=== PATIENT | male | born 1940 | race Caucasian/White ===

== ENCOUNTER 2017-01-23 16:39 | Observation (INO) | payer MEDICARE ==
[~2017-01-23] VITALS: Ht 177.8 cm; Wt 84.0 kg
[2017-01-23] VITALS (8 sets, daily range): BP systolic 142–190; BP diastolic 74–106; PULSE 78–103; RESP 16–21; TEMP 97.9–98.8; O2SAT 97–99
[2017-01-23] MEDS ORDERED: DIGO0.12 PO (17:00)
[2017-01-23] MEDS ORDERED: ASPI81CH CHEW (17:00)
[2017-01-23] MEDS ORDERED: SODIUM CHLORIDE 0.9% FLUSH 5 ML FLUSH IVF PRN (17:15)
[2017-01-23] MEDS ORDERED: DIAZ2 PO (17:22)
[2017-01-23 17:51] LABS: BASOPHIL # 0.2 TH/MM3 (0-0.2); BASOPHIL % 0.9 % (0.0-2.0); EOSINOPHIL # 19.8 TH/MM3 (0-0.4); EOSINOPHIL % 68.3 % (0.0-4.0); HEMATOCRIT 44.6 % (39.0-51.0); HEMO FLAGS DIFF FINAL; LYMPH % 9.1 % (9.0-44.0); LYMPHOCYTE # 2.6 TH/MM3 (1.0-4.8); MEAN CORPUSCULAR HEMOGLOBIN 28.5 PG (27.0-34.0); MEAN CORPUSCULAR HGB CONC 33.6 % (32.0-36.0); MONO % 4.2 % (0.0-8.0); NEUT % 17.5 % (16.0-70.0); PLATELET COUNT 155 TH/MM3 (150-450); RED BLOOD COUNT 5.25 MIL/MM3 (4.50-5.90); RED CELL DISTRIBUTION WIDTH 14.9 % (11.6-17.2); WHITE BLOOD COUNT 28.9 TH/MM3 (4.0-11.0)
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
[2017-01-23 18:00] LABS: APTT (PATIENT) 29.8 SEC (24.3-30.1); INTERNATIONAL NORMALIZED RATIO 1.1 RATIO; PROTHROMBIN TIME - PATIENT 12.7 SEC (9.8-11.6)
--- NOTE | 2017-01-23 18:22 | RADRPT ---
EXAM DATE/TIME: 01/23/2017 18:04 [facility] COMPARISON: No previous studies available for comparison. INDICATIONS : Chest pain MEDICAL HISTORY : None. SURGICAL HISTORY : None. ENCOUNTER: Initial ACUITY: 1 day PAIN SCORE: 5/10 LOCATION: Bilateral chest FINDINGS: Patient is rotated to the left. There is cardiomegaly. The lungs are clear. Osseous structures intact . CONCLUSION: No acute disease. Yemi Yap MD on January 23, 2017 at 18:21 Board Certified Radiologist. This report was verified electronically.
[2017-01-23 18:27] LABS: ALKALINE PHOSPHATASE 109 U/L (45-117); ALT (GPT) 42 U/L (12-78); ANION GAP 7 MEQ/L (5-15); AST (GOT) 39 U/L (15-37); BICARBONATE 26.5 MEQ/L (21.0-32.0); BLOOD UREA NITROGEN 15 MG/DL (7-18); CHLORIDE 107 MEQ/L (98-107); GLOMERULAR FILTRATION RATE 61 ML/MIN (>89); MAGNESIUM 2.2 MG/DL (1.5-2.5); POTASSIUM 4.3 MEQ/L (3.5-5.1); SODIUM (NA) 140 MEQ/L (136-145); TOTAL BILIRUBIN ADULT 1.7 MG/DL (0.2-1.0)
--- NOTE | 2017-01-23 19:26 | HHI.HP ---
HPI Service [facility] Primary Care Physician Pranav Cotton, DO Admission Diagnosis REINOSO, r/o mitral valve disease Diagnoses: (1) Dyspnea on exertion Diagnosis: Principal (2) A-fib Diagnosis: Principal (3) Leukocytosis Diagnosis: Principal (4) Eosinophilia Diagnosis: Principal (5) Cellulitis of left lower extremity Diagnosis: Principal Travel History International Travel<30 Days: No Contact w/Intl Traveler <30 Da: No Traveled to Known Affected Are: No History of Present Illness This is a 76-year-old male with a PMH of A. fib on ASA, Eosinophilia and HTN who presented to the ER w/ complaints of SOB w/ exertion. States symptoms have been ongoing x3-4 days and have gotten progressively worse. Normally walks 1mile per day without difficulty, however notes he has to stop after few minutes to "catch my breath". Denies palpitations or chest pain, but describes mostly chest tightness. Recent antibiotics and steroid treatment x5 days for dental infection, completed treatment approx 1wk ago. Reports persistent post- nasal drip. Seen by PCP 5 days ago and started on antibiotics for LLE cellulitis which he also completed. Cannot recall names of antibiotics. Per records, pt w/ h/o Leukocytosis and Eosinophilia for which he was seen by Dr. Garcia in 2008, recommended treatment w/ Interferon, however pt refused at that time. No further follow up w/ Oncology since then. Does not follow w/ Spot Remover. On arrival, BP 190/106, HR 103, O2 sat 97% on RA, Afebrile. WBC 28.9. Chemistry essentially unremarkable except for GFR 61. Total Bili 1.7. AST 39. Troponin negative. CXR with no acute findings. Pt currently without complaints. Review of Systems Except as stated in HPI: all other systems reviewed are Neg ROS: 14 point review of systems otherwise negative. Past Family Social History Past Medical History PMH: A. fib on ASA, Eosinophilia and HTN Past Surgical History PAST SURGICAL HISTORY: None Allergies: Coded Allergies: Codeine (Verified Allergy, Unknown, Nausea/Vomiting, 01/23/17) per patient makes really sick Family History PAST FAMILY HISTORY: Reviewed. No h/o DM or CAD Social History PAST SOCIAL HISTORY: Negative for alcohol, tobacco or drugs. Physical Exam Vital Signs Vital Signs Date Time Temp Pulse Resp B/P Pulse Ox O2 Delivery O2 Flow Rate FiO2 01/23/17 19:05 86 18 183/90 98 Room Air 01/23/17 18:41 88 160/74 98 Room Air 01/23/17 17:20 97 Room Air 01/23/17 17:20 98 Room Air 01/23/17 17:04 108 99 Room Air 01/23/17 16:56 97.9 85 20 166/84 99 Room Air 01/23/17 16:43 98.4 103 16 190/106 97 Physical Exam PE: GENERAL: Pleasant elderly white male in no acute distress. HEENT: PERRLA, EOMI. No scleral icterus or conjunctival pallor. No lid lag or facial droop. CARDIOVASCULAR: Irregularly irregular, in A. fib. No obvious murmurs to auscultation. No chest tenderness to palpation. RESPIRATORY: No obvious rhonchi or wheezing. Clear to auscultation. Breath sounds equal bilaterally. GASTROINTESTINAL: Abdomen soft, non-tender, nondistended. BS normal. MUSCULOSKELETAL: Extremities without clubbing or cyanosis. 1+ pitting edema bilaterally. Small scab LLE, healing, no surrounding erythema/edema. Pulses intact. NEUROLOGICAL: Awake, alert and oriented x4. No focal neurologic deficits. Moving both upper and lower extremities spontaneously. Laboratory Laboratory Tests Test 01/23/17 17:20 White Blood Count 28.9 Red Blood Count 5.25 Hemoglobin 15.0 Hematocrit 44.6 Mean Corpuscular Volume 85.0 Mean Corpuscular Hemoglobin 28.5 Mean Corpuscular Hemoglobin 33.6 Concent Red Cell Distribution Width 14.9 Platelet Count 155 Mean Platelet Volume 9.7 Neutrophils (%) (Auto) 17.5 Lymphocytes (%) (Auto) 9.1 Monocytes (%) (Auto) 4.2 Eosinophils (%) (Auto) 68.3 Basophils (%) (Auto) 0.9 Neutrophils # (Auto) 5.0 Lymphocytes # (Auto) 2.6 Monocytes # (Auto) 1.2 Eosinophils # (Auto) 19.8 Basophils # (Auto) 0.2 CBC Comment DIFF FINAL Differential Comment Prothrombin Time 12.7 Prothromb Time International 1.1 Ratio Activated Partial 29.8 Thromboplast Time Sodium Level 140 Potassium Level 4.3 Chloride Level 107 Carbon Dioxide Level 26.5 Anion Gap 7 Blood Urea Nitrogen 15 Creatinine 1.16 Estimat Glomerular Filtration 61 Rate Random Glucose 95 Calcium Level 8.9 Magnesium Level 2.2 Total Bilirubin 1.7 Aspartate Amino Transf 39 (AST/SGOT) Alanine Aminotransferase 42 (ALT/SGPT) Alkaline Phosphatase 109 Troponin I LESS THAN 0.02 Total Protein 7.2 Albumin 3.6 Result Diagram: 01/23/17 1720 01/23/17 1720 Assessment and Plan Problem List: (1) Dyspnea on exertion ICD Code: R06.09 Status: Acute (2) A-fib ICD Code: I48.91 Status: Acute (3) Leukocytosis ICD Code: D72.829 Status: Acute (4) Eosinophilia ICD Code: D72.1 Status: Acute (5) Cellulitis of left lower extremity ICD Code: L03.116 Status: Acute Assessment and Plan A/P: 1. REINOSO: acute onset of SOB w/ exertion approx 3-4 days ago, no fever, no chills +chest pressure. Recent antibiotic/steroid treatment for dental infection, relays persistent post-nasal gtt. REINOSO possibly from bronchospasm due to post-nasal drip. Symbicort/DuoNeb prn. Initial trop negative, EKG w/ no acute ischemia. Admit for Observation, telemetry. Check Echo. Cardiology eval if needed. 2. A-fib: Chronic. Rate-controlled. Resume home Digoxin. On ASA, will resume. 3. Leukocytosis: Chronic. WBC 28.9, recent steroid treatment. No shift. Afebrile, no ongoing infection. Repeat labs in am. 4. Eosinophilia: Chronic. Previously following w/ Dr. Garcia in 2008, was recommended treatment w/ Interferon, however refused at that time. No follow up since. 5. DVT Prophylaxis: SCD/Teds. 6. Social work for d/c planning as needed. 7. Case discussed w/ ER physician at length. Sadaf Lindsay MD Jan 23, 2017 19:26
[2017-01-23] MEDS ORDERED: SODIUM CHLORIDE 0.9% FLUSH 5 ML FLUSH FLUSH PRN (19:30)
[2017-01-23] MEDS ORDERED: MORPHINE SULFATE 4 MG/ML INJ IV PRN (19:30)
[2017-01-23] MEDS ORDERED: DIAZEPAM 2 MG TAB PO PRN (19:30)
[2017-01-23] MEDS ORDERED: ONDANSETRON HCL 4 MG/2 ML VIAL IVP PRN (19:30)
[2017-01-23] MEDS ORDERED: BISACODYL 10 MG SUPP PR PRN (19:30)
[2017-01-23] MEDS ORDERED: RESP: ALBUTEROL 2.5 MG/IPRATROPIUM 0.5 MG NEB (PRN) NEB (20:45)
[2017-01-23] MEDS: BUDESONIDE-FORMOTEROL 160/4.5 MCG INHALER INH SCH (21:26)
[2017-01-23] MEDS: SODIUM CHLORIDE 0.9% FLUSH 5 ML FLUSH FLUSH SCH (21:26)
[2017-01-23] MEDS: ACETAMINOPHEN 325 MG TAB PO PRN (23:23)
[2017-01-24] VITALS (7 sets, daily range): BP systolic 129–160; BP diastolic 74–88; PULSE 58–98; RESP 18; TEMP 97.5–98.8; O2SAT 94–97
[2017-01-24] MEDS ORDERED: traMADol HCL 50 MG TAB PO PRN ×2 (02:45)
[2017-01-24 06:25] LABS: AUTOMATED NEUTROPHIL # 5.8 TH/MM3 (1.8-7.7); BASOPHIL # 0.2 TH/MM3 (0-0.2); BASOPHIL % 0.7 % (0.0-2.0); EOSINOPHIL # 20.7 TH/MM3 (0-0.4); EOSINOPHIL % 67.9 % (0.0-4.0); HEMATOCRIT 44.2 % (39.0-51.0); LYMPH % 8.4 % (9.0-44.0); LYMPHOCYTE # 2.6 TH/MM3 (1.0-4.8); MEAN CELL VOLUME 85.1 FL (80.0-100.0); MEAN CORPUSCULAR HEMOGLOBIN 28.1 PG (27.0-34.0); MONO % 3.9 % (0.0-8.0); NEUT % 19.1 % (16.0-70.0); PLATELET COUNT 215 TH/MM3 (150-450); RED BLOOD COUNT 5.19 MIL/MM3 (4.50-5.90); RED CELL DISTRIBUTION WIDTH 15.1 % (11.6-17.2); WHITE BLOOD COUNT 30.5 TH/MM3 (4.0-11.0)
[2017-01-24 06:35] LABS: HEMO FLAGS AUTO DIFF
[2017-01-24 06:43] LABS: ANION GAP 9 MEQ/L (5-15); AST (GOT) 32 U/L (15-37); BICARBONATE 26.9 MEQ/L (21.0-32.0); BLOOD UREA NITROGEN 12 MG/DL (7-18); CHLORIDE 107 MEQ/L (98-107); GLOMERULAR FILTRATION RATE 100 ML/MIN (>89); POTASSIUM 4.1 MEQ/L (3.5-5.1); SODIUM (NA) 143 MEQ/L (136-145)
[2017-01-24 06:48] LABS: ALKALINE PHOSPHATASE 94 U/L (45-117); ALT (GPT) 39 U/L (12-78)
[2017-01-24 08:06] LABS: BASOPHILS 2 % (0-2); CORRECTED NUCLEATED RBC 1 /100 WBC (0-0); EOSINOPHILS 71 % (0-4); NEUTROPHIL # MANUAL DIFF 4.3 TH/MM3 (1.8-7.7); POLYS (SEG NEUTROPHILS) 14 % (16-70); WBC DIFF SAMPLE 100
[2017-01-24 08:07] LABS: PLATELET ESTIMATE SMEAR NORMAL (NORMAL); PLATELET MORPHOLOGY NORMAL (NORMAL); SCAN/DIFF FINAL DIFF MANUAL
[2017-01-24] MEDS: SODIUM CHLORIDE 0.9% FLUSH 5 ML FLUSH FLUSH SCH ×2 (08:15→20:30)
[2017-01-24] MEDS: BUDESONIDE-FORMOTEROL 160/4.5 MCG INHALER INH SCH (08:15)
[2017-01-24] MEDS: ASPIRIN 81 MG CHEW TAB CHEW SCH (08:15)
[2017-01-24] MEDS: DIGOXIN 0.125 MG TAB PO SCH (08:15)
[2017-01-24] MEDS: ACETAMINOPHEN 325 MG TAB PO PRN ×2 (08:16→21:47)
--- NOTE | 2017-01-24 09:50 | HHI.PR ---
Subjective Remarks Follow-up for dyspnea on exertion and palpitations. The patient states he came to the hospital yesterday because of heart palpitations. He denies any chest pain. He states that he's had frequent palpitations from atrial fibrillation in the past, but these palpitations feel different. Denies any known PVCs in the past. He also states that for the past several months he's been having lower extremity swelling. He was seen by proposal coordinator and told to use compression stockings. He states that he [place] walking in the [place] last week, and felt extremely winded/SOB after walking. He doesn't recall that he's ever had an echocardiogram. He does not follow with a supersonic engineer, just his PCP. He was on antibiotics last week for a "bug bite" on his left leg. He requested tramadol overnight for sciatic pain that is exacerbated by sitting in bed. Objective Vitals Vital Signs Date Time Temp Pulse Resp B/P Pulse Ox O2 Delivery O2 Flow Rate FiO2 01/24/17 07:14 97.7 74 18 160/88 96 01/24/17 04:26 98.8 78 18 147/78 97 01/24/17 00:00 97.7 98 18 138/74 96 01/23/17 21:25 98.8 78 21 142/78 98 01/23/17 21:00 98 01/23/17 20:01 168/92 01/23/17 19:05 86 18 183/90 98 Room Air 01/23/17 18:41 88 160/74 98 Room Air 01/23/17 17:20 97 Room Air 01/23/17 17:20 98 Room Air 01/23/17 17:04 108 99 Room Air 01/23/17 16:56 97.9 85 20 166/84 99 Room Air 01/23/17 16:43 98.4 103 16 190/106 97 I/O 01/23/17 01/23/17 01/23/17 01/24/17 01/24/17 01/24/17 07:00 15:00 23:00 07:00 15:00 23:00 Output Total 475 ml Balance -475 ml Output Urine Total 475 ml # Voids 2 Result Diagram: 01/24/17 0552 01/24/17 0552 Imaging Last Impressions Chest X-Ray 01/23/17 7551 Signed Impressions: Service Date/Time: Monday, January 23, 2017 18:04 - CONCLUSION: No acute disease. Yemi Yap MD Objective Remarks GENERAL: Well-developed well-nourished. In no acute distress. SKIN: Warm and dry. Tiny scab on left medial ankle with no drainage or surrounding erythema. HEENT: Normocephalic. Pupils equal and round. Mucous membranes pink and moist. CARDIOVASCULAR: Irregular rate and irregular rhythm. No murmur appreciated. RESPIRATORY: No accessory muscle use. Clear to auscultation. Breath sounds equal bilaterally. GASTROINTESTINAL: Abdomen soft, non-tender, nondistended. Bowel sounds x4. Umbilical hernia. MUSCULOSKELETAL: No obvious deformities. No clubbing or cyanosis. 1+ bilateral lower extremity pitting edema. NEUROLOGICAL: Awake and alert. No focal neurological deficits. Moves upper and lower extremities spontaneously. Normal speech. PSYCHIATRIC: Appropriate mood and affect; insight and judgment normal. A/P Problem List: (1) Dyspnea on exertion ICD Code: R06.09 Status: Acute (2) A-fib ICD Code: I48.91 Status: Chronic (3) Leukocytosis ICD Code: D72.829 Status: Chronic Assessment and Plan 76-year-old male with a PMH of A. fib on ASA, Eosinophilia and HTN who presented w/ complaints of SOB w/ exertion and palpitation REINOSO: Patient noticed progressive dyspnea on exertion starting a few days ago. Has had worsening lower extremity edema for the past few months. BNP 313. Chest x-ray clear. Troponin negative 3. Check echocardiogram. Cardiology eval if needed. Palpitations: EKG with A. fib, no acute ST changes noted. Possibly secondary to PVCs seen on telemetry +/- atrial fibrillation. Start Metoprolol. Continue telemetry monitoring. Outpatient Holter monitor. Cardiology follow-up. A-fib: Chronic. Rate-controlled. Continue home Digoxin, recently restarted, check level. Continue on ASA. Eosinophilia: Chronic. Previously following w/ Dr. Garcia in 2008, was recommended treatment w/ Interferon, however patient declined treatment at that time. 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 Afebrile. Continue outpatient follow-up. Sciatica: Chronic. Continue tramadol as needed. DVT Prophylaxis: SCD/Teds. Discharge Planning Follow-up results of echocardiogram. If echocardiogram is unremarkable and patient remains stable, possible discharge planning for outpatient cardiology follow-up. Problem Qualifiers (1) Leukocytosis: Qualified Code: D72.1 - Eosinophilic leukocytosis Hans Paige Jan 24, 2017 09:50
[2017-01-24] MEDS: METOPROLOL TARTRATE 25 MG TAB PO SCH ×2 (12:27→20:30)
--- NOTE | 2017-01-24 14:36 | EKG ---
Date Performed: 01/23/2017 Time Performed: 23:43:17 PTAGE: 76 years EKG: ATRIAL FIBRILLATION MARKED LEFT AXIS DEVIATION MINIMAL ST DEPRESSION ABNORMAL ECG Compared to prior tracing no significant change PREVIOUS TRACING : 01/23/2017 @ 17.02.46 DOCTOR: Aubrey Rosales Interpretating Date/Time 01/24/2017 14:41:27
--- NOTE | 2017-01-24 14:38 | EC ---
Study Study Date:01/24/2017 STUDY CONCLUSIONS SUMMARY - Left ventricle: The cavity size was normal. Wall thickness was normal. Systolic function was normal. The estimated ejection fraction was in the range of 55% to 60%. Wall motion was normal; there were no regional wall motion abnormalities. - Aortic valve: Mild regurgitation. Valve area: 1.14cm^2(VTI). Valve area: 1.21cm^2 (Vmax). - Mitral valve: Mild regurgitation. - Left atrium: The atrium was moderately dilated. - Right ventricle: The cavity size was moderately to severely dilated. Wall thickness was normal. - Right atrium: The atrium was moderately dilated. - Tricuspid valve: Moderate regurgitation. - Pulmonary arteries: Systolic pressure was severely increased. PA peak pressure: 118mm Hg (S). If LV function is below 40, please consider prescribing an ACEI or ARB or document rationale for non-use. PROCEDURE DATA STUDY STATUS: Elective. Procedure: Transthoracic echocardiography. Image quality was fair. Scanning was performed from the parasternal, apical, and subcostal acoustic windows. Study completion: The patient tolerated the procedure well. Transthoracic echocardiography. M-mode, complete 2D, complete spectral Doppler, and color Doppler. Patient status: Inpatient. CARDIAC ANATOMY LEFT VENTRICLE: The cavity size was normal. Wall thickness was normal. Systolic function was normal. The estimated ejection fraction was in the range of 55% to 60%. Wall motion was normal; there were no regional wall motion abnormalities. AORTIC VALVE: Trileaflet; normal thickness leaflets. Doppler: Transvalvular velocity was within the normal range. There was no stenosis. Mild regurgitation. Valve area: 1.14cm^2(VTI). Valve area: 1.21cm^2 (Vmax). Mean gradient: 7mm Hg (S). Peak gradient: 12mm Hg (S). AORTA: Aortic root: The aortic root was normal in size. MITRAL VALVE: Structurally normal valve. Doppler: Transvalvular velocity was within the normal range. There was no evidence for stenosis. Mild regurgitation. LEFT ATRIUM: The atrium was moderately dilated. RIGHT VENTRICLE: The cavity size was moderately to severely dilated. Wall thickness was normal. PULMONIC VALVE: Doppler: Transvalvular velocity was within the normal range. There was no evidence for stenosis. No regurgitation. TRICUSPID VALVE: Structurally normal valve. Doppler: Transvalvular velocity was within the normal range. Moderate regurgitation. PULMONARY ARTERY: The main pulmonary artery was normal-sized. Systolic pressure was severely increased. RIGHT ATRIUM: The atrium was moderately dilated. PERICARDIUM: There was no pericardial effusion. SYSTEMIC VEINS: Inferior vena cava: The vessel was normal in size. BASIC MEASUREMENTS ADULT NORMAL Left ventricle LV internal dimension, ED, chordal level, 45.7 mm 43-52 PLAX LV internal dimension, ES, chordal level, 34 mm 23-38 PLAX Fractional shortening, chordal level, PLAX *26 % >29 LV posterior wall thickness, ED 12.8 mm IVS/LVPW ratio, ED 1.18 <1.3 Ventricular septum Septal thickness, ED 15.1 mm Aortic valve Leaflet separation 21 mm 15-26 Right ventricle RV internal dimension, ED, PLAX 36.9 mm 19-38 BASIC MEASUREMENTS ADULT NORMAL Aortic valve Leaflet separation 21 mm 15-26 Aorta Root diameter, ED 26 mm 20-37 Left atrium Anterior-posterior dimension, ES *48 mm 19-40 LA/aortic root ratio 1.85 DOPPLER MEASUREMENTS ADULT NORMAL Main pulmonary artery Pressure, S *118 mm Hg =30 Aortic valve Peak velocity, S 174 cm/s Mean velocity, S 122 cm/s VTI, S 29.1 cm Mean gradient, S 7 mm Hg Peak gradient, S 12 mm Hg Valve area, VTI 1.14 cm^2 Valve area, Vmax 1.21 cm^2 Regurgitant velocity, ED 369 cm/s Regurgitant deceleration 1590 cm/s^2 Regurgitant pressure half-time 679 ms Regurgitant gradient, ED 54 mm Hg Tricuspid valve Regurgitant peak velocity 519 cm/s Peak RV-RA gradient, S 108 mm Hg Maximal regurgitant velocity 519 cm/s Systemic veins Estimated CVP 10 mm Hg Right ventricle RV pressure, S *118 mm Hg <30 LEGEND: Mean values are shown as u=mean value. Asterisk (*) murillo values outside specified normal range. Prepared and signed by Do Bear [id number]
--- NOTE | 2017-01-24 14:41 | EKG ---
Date Performed: 01/23/2017 Time Performed: 17:02:46 PTAGE: 76 years EKG: ATRIAL FIBRILLATION POSSIBLE RIGHT VENTRICULAR HYPERTROPHY POSSIBLE ANTERIOR MYOCARDIAL INF ARCTION ABNORMAL ECG Compared to prior tracing no significant change PREVIOUS TRACING 11/23/2005 @ 07.21.11 DOCTOR: Aubrey Rosales Interpretating Date/Time 01/24/2017 14:40:36
[2017-01-24] MEDS: FUROSEMIDE 20 MG TAB PO SCH (15:42)
[2017-01-25] VITALS (7 sets, daily range): BP systolic 150–188; BP diastolic 74–86; PULSE 64–83; RESP 18–19; TEMP 97.8–98.7; O2SAT 92–99
[2017-01-25] MEDS: ACETAMINOPHEN 325 MG TAB PO PRN (03:47)
[2017-01-25 05:08] LABS: BICARBONATE 27.6 MEQ/L (21.0-32.0); MAGNESIUM 2.1 MG/DL (1.5-2.5); POTASSIUM 3.8 MEQ/L (3.5-5.1)
[2017-01-25] MEDS: SODIUM CHLORIDE 0.9% FLUSH 5 ML FLUSH FLUSH SCH ×2 (08:52→21:00)
[2017-01-25] MEDS: DIGOXIN 0.125 MG TAB PO SCH (08:52)
[2017-01-25] MEDS: FUROSEMIDE 20 MG TAB PO SCH (08:52)
[2017-01-25] MEDS: METOPROLOL TARTRATE 25 MG TAB PO SCH ×2 (08:52→21:12)
[2017-01-25] MEDS: ASPIRIN 81 MG CHEW TAB CHEW SCH (08:52)
--- NOTE | 2017-01-25 10:38 | HHI.PR ---
Subjective Remarks Follow-up for dyspnea on exertion. Echocardiogram showed pulmonary hypertension , discussed at length with the patient yesterday and patient's son today. The patient failed ambulate to the restroom today with no dyspnea. The dyspnea has been progressive over the past month or 2. The patient's son states the patient has been working out like 50% capacity. The patient is apprehensive about being referred to a tertiary center for treatment, as he has chronic agoraphobia. All questions answered to the best of my ability. Objective Vitals Vital Signs Date Time Temp Pulse Resp B/P Pulse Ox O2 Delivery O2 Flow Rate FiO2 01/25/17 08:38 98.7 70 19 188/86 96 01/25/17 05:23 16 01/25/17 04:46 73 162/82 92 01/25/17 01:56 64 152/74 95 01/25/17 01:23 66 01/24/17 20:18 98.3 73 129/78 96 01/24/17 15:59 97.5 58 18 146/81 97 01/24/17 15:04 84 01/24/17 11:13 97.5 83 18 140/76 94 Result Diagram: 01/24/17 0552 01/25/17 0357 Imaging Last Impressions Chest X-Ray 01/23/17 1711 Signed Impressions: Service Date/Time: Monday, January 23, 2017 18:04 - CONCLUSION: No acute disease. Yemi Yap MD Objective Remarks GENERAL: Well-developed well-nourished. In no acute distress. SKIN: Warm and dry. Tiny scab on left medial ankle with no drainage or surrounding erythema. HEENT: Normocephalic. Pupils equal and round. Mucous membranes pink and moist. CARDIOVASCULAR: Irregular rate and irregular rhythm. No murmur appreciated. RESPIRATORY: No accessory muscle use. Clear to auscultation. Breath sounds equal bilaterally. GASTROINTESTINAL: Abdomen soft, non-tender, nondistended. Bowel sounds x4. Umbilical hernia. MUSCULOSKELETAL: No obvious deformities. No clubbing or cyanosis. Trace bilateral lower extremity pitting edema L>R. NEUROLOGICAL: Awake and alert. No focal neurological deficits. Moves upper and lower extremities spontaneously. Normal speech. PSYCHIATRIC: Appropriate mood and affect; insight and judgment normal. A/P Problem List: (1) Dyspnea on exertion ICD Code: R06.09 Status: Acute (2) A-fib ICD Code: I48.91 Status: Chronic (3) Leukocytosis ICD Code: D72.829 Status: Chronic Assessment and Plan 76-year-old male with a PMH of A. fib on ASA, Eosinophilia and HTN who presented w/ complaints of SOB w/ exertion and palpitation Pulmonary hypertension: Patient noticed progressive dyspnea on exertion over the past few weeks. Has had worsening lower extremity edema for the past few months. BNP 313. Chest x-ray clear. Troponin negative 3. Echocardiogram shows severe elevation of pulmonary artery pressure with moderate severely dilated right ventricle. Started oral Lasix. Pulmonology consulted, appreciate recommendations. Palpitations: EKG with A. fib, no acute ST changes noted. Possibly secondary to PVCs seen on telemetry +/- atrial fibrillation. TSH within normal limits. Started Metoprolol. Continue telemetry monitoring. Outpatient Holter monitor. Outpatient cardiology follow-up. A-fib: Chronic. Rate-controlled. Continue home Digoxin, recently restarted, level subtherapeutic. Continue on ASA. Eosinophilia: Chronic. Previously following w/ Dr. Garcia in 2008, was recommended treatment w/ Interferon, however patient declined treatment at that time. 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 Afebrile. Continue outpatient follow-up. Sciatica: Chronic. Continue tramadol as needed. DVT Prophylaxis: SCD/Teds. Plan of care discussed with Dr. Garcia Discharge Planning Follow-up pulmonology recommendations. If patient cleared from pulmonology perspective, could potentially discharged today. 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
[2017-01-25] MEDS ORDERED: IOHEXOL 350 MG/ML 10 ML VIAL (for RAD DIAG) IV ONE (15:02)
[2017-01-25] MEDS: amLODIPine BESYLATE 5 MG TAB PO SCH (18:42)
[2017-01-25 19:14] LABS: BLOOD GAS BASE EXCESS 2.7 mmol/L (-2-2); BLOOD GAS CARBOXYHEMOGLOBIN 2.2 % (0-4); BLOOD GAS HCO3 26 mmol/L (22-26); BLOOD GAS METHEMOGLOBIN 1.9 % (0-2); BLOOD GAS O2 HGB SATURATION 92 % (90-100); BLOOD GAS OXYGEN CONTENT 20.1 Vol % (12.0-20.0); BLOOD GAS PCO2 35 mmHg (38-42); BLOOD GAS PO2 75 mmHG (61-120); BLOOD GAS TOTAL HGB 15.5 G/DL (12.0-16.0); CRITICAL VALUE NO; FIO2 21 %; TEMP CORR TO 98.6
[2017-01-25 19:15] LABS: DRAW SITE RT RADIAL; NUMBER OF ARTERIAL PUNCTURES 1; STAT NO; ULNAR PULSE PRESENT
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
[2017-01-26] VITALS (7 sets, daily range): BP systolic 119–174; BP diastolic 71–92; PULSE 62–77; RESP 18–48; TEMP 97.8–98.6; O2SAT 95–98
[2017-01-26] MEDS: ACETAMINOPHEN 325 MG TAB PO PRN ×2 (00:38→22:16)
[2017-01-26 05:52] LABS: AUTOMATED NEUTROPHIL # 4.4 TH/MM3 (1.8-7.7); BASOPHIL # 0.2 TH/MM3 (0-0.2); BASOPHIL % 0.7 % (0.0-2.0); EOSINOPHIL # 19.6 TH/MM3 (0-0.4); EOSINOPHIL % 71.4 % (0.0-4.0); HEMO FLAGS DIFF FINAL; LYMPH % 7.7 % (9.0-44.0); LYMPHOCYTE # 2.1 TH/MM3 (1.0-4.8); MEAN CORPUSCULAR HGB CONC 32.9 % (32.0-36.0); MONO % 4.1 % (0.0-8.0); NEUT % 16.1 % (16.0-70.0); PLATELET COUNT 125 TH/MM3 (150-450); RED BLOOD COUNT 5.18 MIL/MM3 (4.50-5.90); RED CELL DISTRIBUTION WIDTH 14.7 % (11.6-17.2); WHITE BLOOD COUNT 27.5 TH/MM3 (4.0-11.0)
[2017-01-26 06:04] LABS: BICARBONATE 28.8 MEQ/L (21.0-32.0); MAGNESIUM 2.1 MG/DL (1.5-2.5); POTASSIUM 4.3 MEQ/L (3.5-5.1)
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
[2017-01-26] MEDS: METOPROLOL TARTRATE 25 MG TAB PO SCH ×2 (08:48→22:15)
[2017-01-26] MEDS: amLODIPine BESYLATE 5 MG TAB PO SCH (08:48)
[2017-01-26] MEDS: FUROSEMIDE 20 MG TAB PO SCH (08:48)
[2017-01-26] MEDS: POTASSIUM CHLORIDE 20 MEQ CONTROLLED RELEASE TAB PO SCH (08:48)
[2017-01-26] MEDS: DIGOXIN 0.125 MG TAB PO SCH (08:48)
[2017-01-26] MEDS: SODIUM CHLORIDE 0.9% FLUSH 5 ML FLUSH FLUSH SCH ×3 (08:49→22:15)
[2017-01-26] MEDS: ASPIRIN 81 MG CHEW TAB CHEW SCH (08:49)
--- NOTE | 2017-01-26 08:55 | MB ---
cc: MAN PACHECO M.D., R. STEVEN M.D. ABANDO, JOSE R. MD DATE OF CONSULTATION: 01/25/2017 REASON FOR CONSULTATION Consult requested by Dr. Clinton Peña for evaluation of hypereosinophilia. HISTORY OF PRESENT ILLNESS Chavez is a pleasant 76-year-old male. He came to the emergency room complaining of dyspnea on exertion. The patient is admitted to the hospital. Dr. Clinton Peña airport refueling handler was consulted. He ordered a CT angiogram of the chest to evaluate for pulmonary embolism. The patient also had an echocardiogram which showed severe pulmonary hypertension. The CBC also showed leukocytosis with eosinophilia. I have been asked to see the patient for further evaluation. According to the previous records on the EMR the patient was evaluated by Dr. Garcia in 2008 for eosinophilia. The patient underwent a bone marrow biopsy and other tests. 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 Dr. Garcia had recommended the patient to be seen by Dr. Tobin at the [facility]; however, the patient has a history of agoraphobia and he had fear and severe anxiety leaving his home environment. He states that at that time he could not drive to a certain distance. However, over the last several years he has overcome this fear and now he is able to drive and has no problems with that anymore. Interferon was recommended for his hypereosinophilia by DR Garcia, however, the patient had declined due to the side effects. The patient was lost to follow-up. He was last seen by Dr. Garcia in 2008. The patient is under the care of his primary physician. He used to see Dr. Santos Chen, who has now retired. REVIEW OF SYSTEMS The patient states that his breathing has improved since he is in the hospital but whenever he exerts he feels quite dyspneic. He denies any itching, diarrhea or wheezing. The rest of the review of systems is negative. PAST MEDICAL HISTORY 1. Chronic eosinophilia since 2002 or could be longer. 2. Atrial fibrillation. 3. Hypertension. PAST SURGICAL HISTORY None. ALLERGIES CODEINE. MEDICATIONS Per EMR. FAMILY HISTORY Noncontributory. SOCIAL HISTORY The patient does not smoke cigarettes, does not drink alcohol. PHYSICAL EXAMINATION GENERAL: A well-developed, well-nourished white male in no apparent distress. VITAL SIGNS: Temperature 97.8, heart rate 83, blood pressure 159/84. HEENT: PERRLA. EOMI. Anicteric. No oral lesions noted. NECK: Supple. LYMPH NODES: There is no cervical, supraclavicular or axillary lymphadenopathy noted. LUNGS: Clear. No wheezing, rhonchi or rales. HEART: Regular rate and rhythm. ABDOMEN: Nontender. No hepatosplenomegaly. EXTREMITIES: No pedal edema. NEUROLOGIC: Awake, alert, oriented x3. SKIN: No significant lesions are noted. ASSESSMENT 1. Chronic eosinophilia dating back to 2002 per EMR. 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 2. Severe pulmonary hypertension and dilated right heart, probably related to hypereosinophilic syndrome until proven otherwise. PLAN I have reviewed his available records and I had an extensive discussion with the patient regarding his hypereosinophilia. He has had hypereosinophilia since 2002. He underwent an extensive workup by Dr. Garcia in 2008. He was advised to have interferon which he had declined. The patient has persistent progressive hypereosinophilia. We discussed that this is a chronic elevation of eosinophils which may lead to organ damage and failure that could be fatal. We discussed that having eosinophilia can effect his skin, lungs, heart and nervous system. I have recommended to further investigate his hypereosinophilia, especially we need to check for PDGFR. If the PDGFR is positive then the patient will be treated with Gleevec. If the PDGFR is negative then he will be treated with Hydrea to keep his eosinophil counts in check. The patient agreed to be followed in our office upon discharge. Additionally I have ordered a peripheral blood flow cytometry, peripheral smear to be reviewed by the pathologist, serum tryptase, serum vitamin B12, serum immunoglobulin E and ANCA. I have also order BCR-ABL by FISH and JAK2 mutation. Further recommendations will be based on the above test results. If the patient is discharged to home that he could come to our office for follow-up. I have discussed the case with the [facility] physician, Dr. Kwon, in the emergency room. Thank you for asking my opinion. Johnathan Pacheco MD /BT /11:08 PM /8:33 AM [facility] C[facility]oman
--- NOTE | 2017-01-26 09:46 | PD.CARD.PN ---
Subjective Subjective Remarks no complaints Objective Medications Current Medications Medications (Trade) Dose Ordered Sig/Catie Route Start Time Stop Time Status Last Admin (NS Flush) 2 ml UNSCH PRN FLUSH 01/23/17 19:30 (NS Flush) 2 ml BID FLUSH 01/23/17 21:00 01/25/17 08:52 (Zofran Inj) 4 mg Q6H PRN IVP 01/23/17 19:30 (Dulcolax Supp) 10 mg DAILY PRN ID 01/23/17 19:30 (Tylenol) 650 mg Q6H PRN PO 01/23/17 19:30 01/26/17 00:38 (Aspirin Chew) 81 mg DAILY CHEW 01/24/17 09:00 01/26/17 08:49 (Valium) 2 mg Q8HR PRN PO 01/23/17 19:30 (Lanoxin) 0.25 mg DAILY PO 01/24/17 09:00 01/26/17 08:48 (Ultram) 50 mg Q4H PRN PO 01/24/17 02:45 01/24/17 02:48 (Ultram) 100 mg Q4H PRN PO 01/24/17 02:45 (Lopressor) 25 mg Q12HR PO 01/24/17 10:00 01/26/17 08:48 (Norvasc) 5 mg DAILY PO 01/25/17 18:30 01/26/17 08:48 (Lasix) 40 mg DAILY PO 01/26/17 09:00 01/26/17 08:48 (KCl) 20 meq DAILY PO 01/26/17 09:00 01/26/17 08:48 Vital Signs / I&O Vital Signs Date Time Temp Pulse Resp B/P Pulse Ox O2 Delivery O2 Flow Rate FiO2 01/26/17 08:43 98.6 74 18 174/92 98 01/26/17 08:43 Room Air 01/26/17 04:03 98.1 69 18 148/81 97 01/26/17 04:01 74 01/26/17 01:46 18 01/26/17 00:30 98.1 77 18 144/85 98 01/25/17 20:24 97.8 83 18 159/84 97 01/25/17 16:23 98.6 78 19 167/86 99 01/25/17 10:30 150/80 Physical Exam GENERAL: Well developed, well nourished. No acute distress. CHEST: Lungs clear to auscultation bilaterally. Unlabored respiratory effort. CARDIAC: Regular rate and rhythm. Loud P2. 1/6 systolic murmur ABDOMEN: Soft, nontender, no hepatosplenomegaly. Bowel sounds present. EXTREMITIES: No edema. Laboratory Laboratory Tests Test 01/25/17 01/26/17 19:02 05:09 Blood Gas Puncture Site RT RADIAL Blood Gas Patient Temperature 98.6 Blood Gas HCO3 26 mmol/L Blood Gas Base Excess 2.7 mmol/L Blood Gas Oxygen Saturation 92 % Arterial Blood pH 7.48 Arterial Blood Partial 35 mmHg Pressure CO2 Arterial Blood Partial 75 mmHG Pressure O2 Arterial Blood Oxygen Content 20.1 Vol % Arterial Blood 2.2 % Carboxyhemoglobin Arterial Blood Methemoglobin 1.9 % Blood Gas Hemoglobin 15.5 G/DL Blood Gas Inspired Oxygen 21 % White Blood Count 27.5 TH/MM3 Red Blood Count 5.18 MIL/MM3 Hemoglobin 14.5 GM/DL Hematocrit 44.0 % Mean Corpuscular Volume 85.0 FL Mean Corpuscular Hemoglobin 28.0 PG Mean Corpuscular Hemoglobin 32.9 % Concent Red Cell Distribution Width 14.7 % Platelet Count 125 TH/MM3 Mean Platelet Volume 9.9 FL Neutrophils (%) (Auto) 16.1 % Lymphocytes (%) (Auto) 7.7 % Monocytes (%) (Auto) 4.1 % Eosinophils (%) (Auto) 71.4 % Basophils (%) (Auto) 0.7 % Neutrophils # (Auto) 4.4 TH/MM3 Lymphocytes # (Auto) 2.1 TH/MM3 Monocytes # (Auto) 1.1 TH/MM3 Eosinophils # (Auto) 19.6 TH/MM3 Basophils # (Auto) 0.2 TH/MM3 CBC Comment DIFF FINAL Differential Comment Blood Smear Pathologist Review Sodium Level 143 MEQ/L Potassium Level 4.3 MEQ/L Chloride Level 107 MEQ/L Carbon Dioxide Level 28.8 MEQ/L Anion Gap 7 MEQ/L Blood Urea Nitrogen 18 MG/DL Creatinine 0.80 MG/DL Estimat Glomerular Filtration 94 ML/MIN Rate Random Glucose 82 MG/DL Calcium Level 8.8 MG/DL Magnesium Level 2.1 MG/DL Vitamin B12 Level 949 PG/ML Assessment and Plan Problem List: (1) Pulmonary hypertension associated with hematologic disorder Assessment and Plan: Eosinophilia is most likely the cause of his pulmonary HTN (2) A-fib Assessment and Plan: stable. Change ASA to Eliquis. Education about Eliquis provided by me. (3) Benign essential HTN Assessment and Plan: amlodipine added. It might help lower his PA pressures too Beka Sommers MD Jan 26, 2017 09:45
[2017-01-26] MEDS ORDERED: IOHEXOL 350 MG/ML 10 ML VIAL (for RAD DIAG) IV ONE (10:44)
--- NOTE | 2017-01-26 11:11 | PD.ONC.PN ---
Subjective Subjective Remarks Afebrile overnight. Patient denies dyspnea at present. No pain. No bleeding. Objective Data Date Time Temp Pulse Resp B/P Pulse Ox O2 Delivery O2 Flow Rate FiO2 01/26/17 08:43 98.6 74 18 174/92 98 01/26/17 08:43 Room Air 01/26/17 04:03 98.1 69 18 148/81 97 01/26/17 04:01 74 01/26/17 01:46 18 01/26/17 00:30 98.1 77 18 144/85 98 01/25/17 20:24 97.8 83 18 159/84 97 01/25/17 16:23 98.6 78 19 167/86 99 Result Diagram: 01/26/17 0509 01/26/17 0509 Laboratory Results Laboratory Tests Test 01/25/17 01/26/17 19:02 05:09 Blood Gas Puncture Site RT RADIAL Blood Gas Patient Temperature 98.6 Blood Gas HCO3 26 mmol/L Blood Gas Base Excess 2.7 mmol/L Blood Gas Oxygen Saturation 92 % Arterial Blood pH 7.48 Arterial Blood Partial 35 mmHg Pressure CO2 Arterial Blood Partial 75 mmHG Pressure O2 Arterial Blood Oxygen Content 20.1 Vol % Arterial Blood 2.2 % Carboxyhemoglobin Arterial Blood Methemoglobin 1.9 % Blood Gas Hemoglobin 15.5 G/DL Blood Gas Inspired Oxygen 21 % White Blood Count 27.5 TH/MM3 Red Blood Count 5.18 MIL/MM3 Hemoglobin 14.5 GM/DL Hematocrit 44.0 % Mean Corpuscular Volume 85.0 FL Mean Corpuscular Hemoglobin 28.0 PG Mean Corpuscular Hemoglobin 32.9 % Concent Red Cell Distribution Width 14.7 % Platelet Count 125 TH/MM3 Mean Platelet Volume 9.9 FL Neutrophils (%) (Auto) 16.1 % Lymphocytes (%) (Auto) 7.7 % Monocytes (%) (Auto) 4.1 % Eosinophils (%) (Auto) 71.4 % Basophils (%) (Auto) 0.7 % Neutrophils # (Auto) 4.4 TH/MM3 Lymphocytes # (Auto) 2.1 TH/MM3 Monocytes # (Auto) 1.1 TH/MM3 Eosinophils # (Auto) 19.6 TH/MM3 Basophils # (Auto) 0.2 TH/MM3 CBC Comment DIFF FINAL Differential Comment Blood Smear Pathologist Review Sodium Level 143 MEQ/L Potassium Level 4.3 MEQ/L Chloride Level 107 MEQ/L Carbon Dioxide Level 28.8 MEQ/L Anion Gap 7 MEQ/L Blood Urea Nitrogen 18 MG/DL Creatinine 0.80 MG/DL Estimat Glomerular Filtration 94 ML/MIN Rate Random Glucose 82 MG/DL Calcium Level 8.8 MG/DL Magnesium Level 2.1 MG/DL Vitamin B12 Level 949 PG/ML Administered Medications Medications (Trade) Dose Ordered Sig/Catie Route PRN Reason Start Time Stop Time Status Last Admin Dose Admin IV Flush (NS Flush) 2 ml BID FLUSH 01/23/17 21:00 01/25/17 08:52 Acetaminophen (Tylenol) 650 mg Q6H PRN PO FEVER/PAIN SCALE 1 TO 2 01/23/17 19:30 01/26/17 00:38 Digoxin (Lanoxin) 0.25 mg DAILY PO 01/24/17 09:00 01/26/17 08:48 Tramadol HCl (Ultram) 50 mg Q4H PRN PO PAIN 3-5 01/24/17 02:45 01/24/17 02:48 Metoprolol Tartrate (Lopressor) 25 mg Q12HR PO 01/24/17 10:00 01/26/17 08:48 Amlodipine Besylate (Norvasc) 5 mg DAILY PO 01/25/17 18:30 01/26/17 08:48 Furosemide (Lasix) 40 mg DAILY PO 01/26/17 09:00 01/26/17 08:48 Potassium Chloride (KCl) 20 meq DAILY PO 01/26/17 09:00 01/26/17 08:48 Objective Remarks GENERAL: Elderly male, sitting up in bed in [facility]. SKIN: Warm and dry. HEAD: Normocephalic. EYES: No injection or drainage. NECK: Supple, trachea midline. CARDIOVASCULAR: Regular rate and rhythm RESPIRATORY: Breath sounds equal bilaterally. No accessory muscle use. GASTROINTESTINAL: Abdomen soft, non-tender, nondistended. EXTREMITIES: No cyanosis NEUROLOGICAL: No obvious focal deficit. Awake, alert, and oriented x3. Assessment/Plan Problem List: (1) Eosinophilia Status: Acute Plan: 01/26/17: fs faxed to [facility]pr for follow up once discharged. will need to await results of workup before deciding on treatment plan --has had hypereosinophilia since 2002. underwent an extensive workup by Dr. Garcia in 2008. --was advised to have interferon which he had declined. --patient has persistent progressive hypereosinophilia. -->is a chronic elevation of eosinophils which may lead to organ damage and failure that could be fatal. --will check PTGFR. If the PTGFR is positive then the patient will be treated with Gleevec. --if PTGFR is negative then he will be treated with Hydrea to keep his eosinophil counts in check. 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 Assessment 76y/o admitted for dyspnea. Hematology consulted for hypereosinophilia. h/o Chronic eosinophilia since 2002 or could be longer. Atrial fibrillation. Hypertension. Pulmonary hypertension Attending Statement no sob w/u for eosinophilia is underway Ok to d/c from my standpoint. FU as outpt The exam, history, and the medical decision-making described in the above note were completed with the assistance of the mid-level provider. I reviewed and agree with the findings presented. I attest that I had a [id number] encounter with the patient on the same day, and personally performed and documented my assessment and findings in the medical record. Linda Lynn Jan 26, 2017 11:11 Antonia Pacheco MD Jan 26, 2017 22:27
--- NOTE | 2017-01-26 11:14 | RADRPT ---
EXAM DATE/TIME: 01/26/2017 10:26 [place] COMPARISON: CHEST SINGLE AP, January 23, 2017, 18:04. INDICATIONS : Chest pain. IV CONTRAST: 66 cc Omnipaque 350 (iohexol) IV RADIATION DOSE: 23.25 CTDIvol (mGy) MEDICAL HISTORY : Cardiovascular disease. Hypertension. SURGICAL HISTORY : None. ENCOUNTER: Initial ACUITY: 1 day PAIN SCALE: 5/10 LOCATION: Bilateral chest TECHNIQUE: Volumetric scanning of the chest was performed using a pulmonary embolism protocol MIP images were re constructed. Using automated exposure control and adjustment of the mA and/or kV according to patien t size, radiation dose was kept as low as reasonably achievable to obtain optimal diagnostic quality images. FINDINGS: There is respiratory motion artifact. PULMONARY ARTERIES: No filling defects are seen in the pulmonary arteries through the segmental level. LUNGS: There is mild atelectasis in both lower lobes. No consolidation or pneumothorax is seen. PLEURAE: There is no pleural thickening or pleural effusion. MEDIASTINUM: The heart is enlarged, particularly the right atrium and ventricle. There is reflux of contrast into the hepatic veins. There is soft tissue thickening around the pulmonary artery. The ascending aorta i s enlarged measuring up to 4.3 cm and the descending thoracic aorta is enlarged measuring up to 3.1 c m. No lymphadenopathy is visualized. MUSCULOSKELETAL: There are degenerative changes of the thoracic spine. MISCELLANEOUS: The visualized upper abdominal organs demonstrate no acute abnormality. CONCLUSION: 1. Examination quality degraded by motion artifact. No PE is identified. 2. Enlarged right heart with reflux of contrast into the hepatic veins suggesting elevated right hear t pressure or tricuspid regurgitation. 3. Nonspecific thickening around the pulmonary artery. 4. Aneurysm of the ascending and descending thoracic aorta measuring 4.3 cm and 3.1 cm, respectively. Freddie Fletcher MD on January 26, 2017 at 10:59 Board Certified Radiologist. This report was verified electronically.
[2017-01-26] MEDS: APIXABAN 5 MG TABLET PO SCH ×2 (11:29→22:15)
--- NOTE | 2017-01-26 13:41 | HHI.PR ---
Subjective Remarks Follow up for dyspnea on exertion, pulmonary hypertension. The patient reports improvement of his shortness of breath. He has been able to ambulate to the restroom 8-10x overnight without difficulty. He states he "still feels the afib ". Denies any chest pain. Denies any lightheadedness or dizziness. Denies any other medical complaints at this time. Objective Vitals Vital Signs Date Time Temp Pulse Resp B/P Pulse Ox O2 Delivery O2 Flow Rate FiO2 01/26/17 08:43 98.6 74 18 174/92 98 01/26/17 08:43 Room Air 01/26/17 04:03 98.1 69 18 148/81 97 01/26/17 04:01 74 01/26/17 01:46 18 01/26/17 00:30 98.1 77 18 144/85 98 01/25/17 20:24 97.8 83 18 159/84 97 01/25/17 16:23 98.6 78 19 167/86 99 Result Diagram: 01/26/17 0509 01/26/17 [address] Angiography 01/26/17 0000 Signed Impressions: Service Date/Time: Thursday, January 26, 2017 10:26 - CONCLUSION: 1. Examination quality degraded by motion artifact. No PE is identified. 2. Enlarged right heart with reflux of contrast into the hepatic veins suggesting elevated right heart pressure or tricuspid regurgitation. 3. Nonspecific thickening around the pulmonary artery. 4. Aneurysm of the ascending and descending thoracic aorta measuring 4.3 cm and 3.1 cm, respectively. Freddie Fletcher MD Chest X-Ray 01/23/17 1711 Signed Impressions: Service Date/Time: Monday, January 23, 2017 18:04 - CONCLUSION: No acute disease. Yemi Yap MD Objective Remarks GENERAL: Well-nourished, well-developed elderly male patient in [facility]. SKIN: Warm and dry. No rash. HEENT: Normocephalic. Atraumatic.Pupils equal and round. No scleral icterus. No injection or drainage. Mucous membranes pink and moist. NECK: Supple. Trachea midline. CARDIOVASCULAR: Irregular rate and rhythm. S1, S2 noted. 3/6 systolic murmur noted. RESPIRATORY: No accessory muscle use. Clear to auscultation. Breath sounds equal bilaterally. GASTROINTESTINAL: Abdomen soft, non-tender, nondistended. Normoactive bowel sounds x4. MUSCULOSKELETAL: No obvious deformities. Trace BLE edema. NEUROLOGICAL: Awake and alert. No obvious cranial nerve deficits. Motor grossly within normal limits. Normal speech. PSYCHIATRIC: Appropriate mood and affect; insight and judgment normal. Medications and IVs Current Medications Medications (Trade) Dose Ordered Sig/Catie Route Start Time Stop Time Status Last Admin (NS Flush) 2 ml UNSCH PRN FLUSH 01/23/17 19:30 (NS Flush) 2 ml BID FLUSH 01/23/17 21:00 01/26/17 11:30 (Zofran Inj) 4 mg Q6H PRN IVP 01/23/17 19:30 (Dulcolax Supp) 10 mg DAILY PRN ME 01/23/17 19:30 (Tylenol) 650 mg Q6H PRN PO 01/23/17 19:30 01/26/17 00:38 (Valium) 2 mg Q8HR PRN PO 01/23/17 19:30 (Lanoxin) 0.25 mg DAILY PO 01/24/17 09:00 01/26/17 08:48 (Ultram) 50 mg Q4H PRN PO 01/24/17 02:45 01/24/17 02:48 (Ultram) 100 mg Q4H PRN PO 01/24/17 02:45 (Lopressor) 25 mg Q12HR PO 01/24/17 10:00 01/26/17 08:48 (Norvasc) 5 mg DAILY PO 01/25/17 18:30 01/26/17 08:48 (Lasix) 40 mg DAILY PO 01/26/17 09:00 01/26/17 08:48 (KCl) 20 meq DAILY PO 01/26/17 09:00 01/26/17 08:48 (Eliquis) 5 mg BID PO 01/26/17 10:00 01/26/17 11:29 A/P Problem List: (1) Dyspnea on exertion ICD Code: R06.09 Status: Acute (2) A-fib ICD Code: I48.91 Status: Chronic (3) Leukocytosis ICD Code: D72.829 Status: Chronic Assessment and Plan 76-year-old male with a PMH of A. fib on ASA, Eosinophilia and HTN who presented w/ complaints of SOB w/ exertion and palpitation Pulmonary hypertension: Patient noticed progressive dyspnea on exertion over the past few weeks with worsening lower extremity edema for the past few months. BNP 313. CXR clear. Troponin negative 3. Echocardiogram shows severe elevation of pulmonary artery pressure with moderate severely dilated right ventricle. Started oral Lasix 40mg daily. Pulmonology and Cardiology consulted, appreciate recommendations. Likely eosinophilia etiology of pulm htn however checked CT-PA to rule out pulmonary disease/embolism; results reviewed- negative for PE, enlarged R heart with reflux into hepatic veins suggesting elevated R heart pressure vs tricuspid regurgitation. Palpitations: EKG with A. fib, no acute ST changes noted. Possibly secondary to PVCs seen on telemetry +/- atrial fibrillation. TSH wnl. Started Metoprolol. Continue telemetry monitoring. Atrial Fibrillation: Rate-controlled. Continue home Digoxin, recently restarted , level subtherapeutic. Also started on metoprolol. Consulted cardiology, appreciated Dr. Sommers recommendations. Changed aspirin to Eliquis, patient counseled on blood thinner precautions. Eosinophilia: Previously following w/ Dr. Garcia in 2008, was recommended treatment w/ Interferon, however patient declined treatment at that time. Chronic elevation of eosinophils may lead to organ damage and failure that could be fatal, patient educated on this disease. Consulted hematology, appreciated recommendations, multiple labs ordered, recommended to check PTGFR. If the PTGFR is positive then the patient will be treated with Gleevec;--if PTGFR is negative then he will be treated with Hydrea to keep his eosinophil counts in check. Needs to f/up as outpatient with hematology. Thoracic Aortic Aneurysm: seen on CT-PA showed aneurysm of ascending and descending thoracic aorta measuring 4.3cm and 3.1cm. Discussed with cardiothoracic surgeon Dr. Arzate, recommends outpatient f/up for now with aneurysms < 5.5cm. Sciatica: Chronic. Continue tramadol as needed. DVT Prophylaxis: SCD/Teds. Written by Marilynn Tanner, acting as scribe for Dr. Kwon on 01/26/17 at 10:00. All or portions of this note were transcribed by scribe []. I, Dr. Warren Kwon personally performed the history, physical exam, and medical decision making; and confirmed the accuracy of the information in the transcribed note. Authenticated by Dr. aWrren Kwon on 01/26/17 at 18:13. Discharge Planning Possible discharge today. 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
[2017-01-27 01:17] VITALS: BP 120/72; PULSE 87; RESP 18; TEMP 98.4; O2SAT 98
[2017-01-27 05:32] VITALS: BP 121/68; PULSE 77; RESP 18; TEMP 98.1; O2SAT 97
[2017-01-27 07:42] VITALS: BP 160/83; PULSE 76; RESP 16; TEMP 97.9; O2SAT 96
[2017-01-27] MEDS: DIGOXIN 0.125 MG TAB PO SCH (08:49)
[2017-01-27] MEDS: APIXABAN 5 MG TABLET PO SCH (08:49)
[2017-01-27] MEDS: FUROSEMIDE 20 MG TAB PO SCH (08:49)
[2017-01-27] MEDS: METOPROLOL TARTRATE 25 MG TAB PO SCH (08:50)
[2017-01-27] MEDS: amLODIPine BESYLATE 5 MG TAB PO SCH (08:50)
[2017-01-27] MEDS: POTASSIUM CHLORIDE 20 MEQ CONTROLLED RELEASE TAB PO SCH (08:50)
[2017-01-27] MEDS: SODIUM CHLORIDE 0.9% FLUSH 5 ML FLUSH FLUSH SCH (09:00)
--- NOTE | 2017-01-27 09:49 | HHI.DS ---
cc: Dr. Pranav Cotton; Antonia Pacheco MD; Zenobia Peña MD; Beka Sommers MD Discharge Summary Admission Date Jan 23, 2017 at 7:25 pm Discharge Date: Jan 27, 2017 Admitting Diagnosis REINOSO, r/o mitral valve disease (1) Pulmonary hypertension associated with hematologic disorder ICD Code: I27.2 Diagnosis: Principal (2) Dyspnea on exertion ICD Code: R06.09 Diagnosis: Principal (3) A-fib ICD Code: I48.91 Diagnosis: Principal (4) Eosinophilia ICD Code: D72.1 Diagnosis: Principal (5) Benign essential HTN ICD Code: I10 Diagnosis: Secondary Procedures None. Brief History - From Admission This is a 76-year-old male with a PMH of A. fib on ASA, Eosinophilia and HTN who presented to the ER w/ complaints of SOB w/ exertion. States symptoms have been ongoing x3-4 days and have gotten progressively worse. Normally walks 1mile per day without difficulty, however notes he has to stop after few minutes to "catch my breath". Denies palpitations or chest pain, but describes mostly chest tightness. Recent antibiotics and steroid treatment x5 days for dental infection, completed treatment approx 1wk ago. Reports persistent post- nasal drip. Seen by PCP 5 days ago and started on antibiotics for LLE cellulitis which he also completed. Cannot recall names of antibiotics. Per records, pt w/ h/o Leukocytosis and Eosinophilia for which he was seen by Dr. Garcia in 2008, recommended treatment w/ Interferon, however pt refused at that time. No further follow up w/ Oncology since then. 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 On arrival, BP 190/106, HR 103, O2 sat 97% on RA, Afebrile. WBC 28.9. Chemistry essentially unremarkable except for GFR 61. Total Bili 1.7. AST 39. Troponin negative. CXR with no acute findings. Pt currently without complaints. CBC/BMP: 01/26/17 0509 01/26/17 0509 Significant Findings Laboratory Tests Test 01/25/17 01/26/17 19:02 05:09 Blood Gas Base Excess 2.7 mmol/L (-2-2) Arterial Blood pH 7.48 (7.380-7.420) Arterial Blood Partial 35 mmHg (38-42) Pressure CO2 Arterial Blood Oxygen Content 20.1 Vol % (12.0-20.0) White Blood Count 27.5 TH/MM3 (4.0-11.0) Platelet Count 125 TH/MM3 (150-450) Lymphocytes (%) (Auto) 7.7 % (9.0-44.0) Eosinophils (%) (Auto) 71.4 % (0.0-4.0) Monocytes # (Auto) 1.1 TH/MM3 (0-0.9) Eosinophils # (Auto) 19.6 TH/MM3 (0-0.4) Imaging Last Impressions CT Angiography 01/26/17 0000 Signed Impressions: Service Date/Time: Thursday, January 26, 2017 10:26 - CONCLUSION: 1. Examination quality degraded by motion artifact. No PE is identified. 2. Enlarged right heart with reflux of contrast into the hepatic veins suggesting elevated right heart pressure or tricuspid regurgitation. 3. Nonspecific thickening around the pulmonary artery. 4. Aneurysm of the ascending and descending thoracic aorta measuring 4.3 cm and 3.1 cm, respectively. Freddie Fletcher MD Chest X-Ray 01/23/17 1711 Signed Impressions: Service Date/Time: Monday, January 23, 2017 18:04 - CONCLUSION: No acute disease. Yemi Yap MD PE at Discharge GENERAL: Well-nourished, well-developed elderly male patient in [facility]. SKIN: Warm and dry. No rash. HEENT: Normocephalic. Atraumatic.Pupils equal and round. No scleral icterus. No injection or drainage. Mucous membranes pink and moist. NECK: Supple. Trachea midline. CARDIOVASCULAR: Irregular rate and rhythm. S1, S2 noted. 3/6 systolic murmur noted. RESPIRATORY: No accessory muscle use. Clear to auscultation. Breath sounds equal bilaterally. GASTROINTESTINAL: Abdomen soft, non-tender, nondistended. Normoactive bowel sounds x4. MUSCULOSKELETAL: No obvious deformities. Trace BLE edema. NEUROLOGICAL: Awake and alert. No obvious cranial nerve deficits. Motor grossly within normal limits. Normal speech. PSYCHIATRIC: Appropriate mood and affect; insight and judgment normal. Pt update on day of discharge The patient reports feeling much better again today. Shortness of breath has improved. He has been able to ambulate without difficulty. Lower extremity edema much improved. Denies any other medical complaints at this time. He wants to go home. Hospital Course 76-year-old male with a PMH of Elizabeth pena on ASA, Eosinophilia and HTN who presented w/ complaints of SOB w/ exertion and palpitation Pulmonary hypertension: Patient noticed progressive REINOSO over the past few weeks with worsening BLE edema for the past few months. BNP 313. CXR clear. Troponin negative 3. Echocardiogram shows severe elevation of pulmonary artery pressure with moderate-severely dilated right ventricle. Started oral Lasix 40mg daily. Pulmonology and Cardiology consulted. Seen by Dr. Clinton Peña, Likely eosinophilia etiology of pulm htn however checked CT-PA to rule out pulmonary disease/embolism; results reviewed- negative for PE, enlarged R heart with reflux into hepatic veins suggesting elevated R heart pressure vs tricuspid regurgitation. Dr. Peña strongly suggests patient get set up at the pulm htn clinic at [facility] in [place]. Dr. Peña will f/up with the patient after discharge and assist in this referral. Per Dr. Peña, no specific pulmonary therapy needed at discharge. Palpitations: EKG with Elizabeth pena, no acute ST changes noted. Possibly secondary to PVCs seen on telemetry +/- atrial fibrillation. TSH wnl. Started Metoprolol. Continue telemetry monitoring. Atrial Fibrillation: Rate-controlled. Continue home Digoxin, recently restarted , level subtherapeutic. Also started on metoprolol. Consulted cardiology, appreciated Dr. Sommers recommendations. Changed aspirin to Eliquis, patient counseled on blood thinner precautions. Eosinophilia: Previously following w/ Dr. Garcia in 2008, was recommended treatment w/ Interferon, however patient declined treatment at that time. Chronic elevation of eosinophils may lead to organ damage and failure that could be fatal, patient educated on this disease. Consulted hematology, appreciated recommendations, multiple labs ordered, recommended to check PTGFR. If the PTGFR is positive then the patient will be treated with Gleevec;--if PTGFR is negative then he will be treated with Hydrea to keep his eosinophil counts in check. Needs to f/up as outpatient with hematology. Thoracic Aortic Aneurysm: seen on CT-PA showed aneurysm of ascending and descending thoracic aorta measuring 4.3cm and 3.1cm. Discussed with cardiothoracic surgeon Dr. Arzate, recommends outpatient f/up for now with aneurysms < 5.5cm. Sciatica: Chronic. Continue tramadol as needed. DVT Prophylaxis: SCD/Teds. Written by Marilynn Tanner, acting as scribe for Dr. Kwon on 01/27/17 at 09:47. All or portions of this note were transcribed by scribe []. I, Dr. Warren Kwon personally performed the history, physical exam, and medical decision making; and confirmed the accuracy of the information in the transcribed note. Authenticated by Dr. Warren Kwon on 01/27/17 at 16:21. Pt Condition on Discharge: Stable Discharge Disposition: Discharge Home Discharge Time: > 30 minutes Discharge Instructions DIET: Follow Instructions for: As Tolerated, No Restrictions Follow up Referrals: Cardiology - 1 Week with Beka Sommers MD Oncology - 1 Week with Antonia Pacheco MD PCP Follow-up - 1 Week with Pranav Cotton Do Pulmonology - 1 Week with Zenobia Peña MD New Medications: Amlodipine (Norvasc) 5 Mg Tab 5 MG PO DAILY Blood Pressure Management #30 TAB Apixaban (Eliquis) 5 Mg Tab 5 MG PO BID afib #60 TAB Furosemide (Furosemide) 20 Mg Tab 40 MG PO DAILY fluid #30 TAB Metoprolol Tartrate (Metoprolol Tartrate) 25 Mg Tab 25 MG PO Q12HR afib #60 TAB Potassium Chloride Microencaps (Potassium Chloride Microencaps) 20 Meq Tab 20 MEQ PO DAILY Electrolyte Replacement #30 TAB Continued Medications: Diazepam (Valium) 2 Mg Tab 2 MG PO Q8HR PRN ANXIETY Ref 0 TAB Digoxin (Digoxin) 0.125 Mg Tab 0.25 MG PO DAILY Regulate Heart Beat Ref 0 TAB Discontinued Medications: Aspirin (Aspirin) 81 Mg Chew 81 MG CHEW DAILY Ref 0 TAB Marilynn Tanner PA-C Jan 27, 2017 09:49 Warren Kwon MD Jan 27, 2017 16:21
[2017-01-27 11:04] VITALS: BP 127/64; PULSE 67; RESP 14; TEMP 98.1; O2SAT 96
[2017-01-27] MEDS ORDERED: METO25TA3 PO (12:06)
[2017-01-27] MEDS ORDERED: POTA20TA5 PO (12:06)
[2017-01-27] MEDS ORDERED: FURO20TA PO (12:06)
[2017-01-27] MEDS ORDERED: AMLO5 PO (12:06)
[2017-01-27] MEDS ORDERED: APIX5TAB PO (12:06)
--- NOTE | 2017-01-27 15:27 | MD ---
cc: Zenobia SERRANO M.D. ADMISSION DATE: 01/23/2017 DISCHARGE DATE: 01/27/2017 BRIEF HISTORY Mr. Santana is a 76-year-old white male whom I saw for the first time yesterday with severe pulmonary hypertension. 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 Garcia almost a decade ago. Etiology of pulmonary hypertension is unclear, although I have been able to identify a few case reports of hypereosinophilic syndrome resulting in pulmonary hypertension. Treatment seems to be of the underlying disease. Although the patient was quite dyspneic on presentation, he is feeling better today and we have been able to do a few studies including a CT angiogram which revealed no evidence of pulmonary embolism and no other specific pulmonary parenchymal disease. This is probably not secondary to primary pulmonary disease. Cardiology has also seen him because he came in atrial fibrillation and apparently has had atrial fibrillation for over a decade. He did not have appropriate follow up, other than primary care followup for the fibrillation or the hypereosinophilia. The patient apparently never returned to see hematology and was unable to go to the [facility] which had been recommended because he says he cannot make those trips because of agoraphobia. Additional studies that we have done include an arterial blood gas with a pO2 of 75 on room air, pH 7.48, pCO2 of 35. Additional labs have been ordered by hematology. PHYSICAL EXAMINATION VITAL SIGNS: Physical exam today, 98 degrees, 130/80, pulse 60, respirations 18, and sat on room air 96-98%. NECK: Neck veins are mildly distended. CHEST: Chest is entirely clear. CARDIAC: Heart rate is irregular, soft systolic murmur. ABDOMEN: Abdomen is soft and he has very minimal lower extremity edema. Mr. Santana presents with very severe pulmonary artery systolic pressure based on echocardiogram and a history of hypereosinophilia. He also has chronic atrial fibrillation, mild mitral valvular regurgitation and a dilated right ventricle. The patient is willing to be followed up by oncology now, in terms of the treatment of pulmonary hypertension, that really is going to require further intervention at a specialty center. The severity of the pulmonary hypertension is very worrisome, unlikely that treating the blood disorder itself is going to reverse that. I had a long talk with the patient today and explained to him that we should really set him up for an appointment at the pulmonary hypertension clinic at the [facility] in [place]. That would be his next step in terms of further evaluation and consideration of additional therapy for the pulmonary hypertension itself. He is going to consider that, talk to his son and again I have emphasized to him the importance of that, particularly in light of the right heart failure. There is no specific pulmonary therapy for discharge at this point. I have asked him to call me and we can help facilitate that referral to the [facility]. R. Clinton Serrano MD [facility]/FÉLIXL /5:57 PM /3:23 PM
--- NOTE | 2017-01-27 21:56 | PD.ONC.PN ---
Subjective Subjective Remarks Late Entry. Pt seen at 8:45 am in ER no sob but has REINOSO ( due to pulm hTN) Objective Data Date Time Temp Pulse Resp B/P Pulse Ox O2 Delivery O2 Flow Rate FiO2 01/27/17 11:04 98.1 67 14 127/64 96 01/27/17 07:42 97.9 76 16 160/83 96 01/27/17 05:32 98.1 77 18 121/68 97 01/27/17 01:17 98.4 87 18 120/72 98 01/26/17 23:34 16 Result Diagram: 01/26/17 0509 01/26/17 0509 Objective Remarks GENERAL: Well-nourished, well-developed patient. SKIN: Warm and dry. HEAD: Normocephalic. EYES: No scleral icterus. No injection or drainage. NECK: Supple, trachea midline. No JVD or lymphadenopathy. LYMPHATIC: No adenopathy. CARDIOVASCULAR: Regular rate and rhythm without murmurs. RESPIRATORY: Breath sounds equal bilaterally. No accessory muscle use. GASTROINTESTINAL: Abdomen soft, non-tender, nondistended. EXTREMITIES: No cyanosis, or edema. NEUROLOGICAL: No obvious focal deficit. Awake, alert, and oriented x3. PSYCHIATRIC: Appropriate mood and affect; insight and judgment normal. Assessment/Plan Problem List: (1) Eosinophilia Status: Acute Plan: 01/27/17 w/u for HES is still pending. pt agrees to come to office for further treatment plan. ( Gleevec vs hydrea) 01/26/17: fs faxed to [facility] for follow up once discharged. will need to await results of workup before deciding on treatment plan --has had hypereosinophilia since 2002. underwent an extensive workup by Dr. Garcia in 2008. --was advised to have interferon which he had declined. --patient has persistent progressive hypereosinophilia. -->is a chronic elevation of eosinophils which may lead to organ damage and failure that could be fatal. --will check PTGFR. If the PTGFR is positive then the patient will be treated with Gleevec. --if PTGFR is negative then he will be treated with Hydrea to keep his eosinophil counts in check. 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 Assessment 76y/o admitted for dyspnea. Hematology consulted for hypereosinophilia. h/o Chronic eosinophilia since 2002 or could be longer. Atrial fibrillation. Hypertension. Pulmonary hypertension Antonia Pacheco MD Jan 27, 2017 21:56
[2017-01-28 15:53] LABS: MYELOPEROXIDASE LESS THAN 1.0 AI (<1.0); PROTEINASE-3 LESS THAN 1.0 AI (<1.0)
--- NOTE | 2017-02-10 13:01 | RSPPFT ---
DATE OF PROCEDURE: 01/25/17 COMMENTS: VOLUMES DYNAMIC: FVC and FEV1 normal. FLOWS: FEV1% and FEF 25-75 super normal. IMPRESSION: Normal simple spirometry with no significant obstruction or restriction and no improvement post-bronchodilator.
== END 2017-01-27 14:11 | disposition home or self-care (01) ==
LOC: EDBD → NEPE 16:39 → NEDA 19:25 → NEPFCDU 20:42
PROVIDERS: ADMIT Internal Medicine; ATTEND Internal Medicine
DX: I27.2 Other secondary pulmonary hypertension (principal); D72.1 Eosinophilia; I48.2 Chronic atrial fibrillation; Z79.82 Long term (current) use of aspirin; I71.2 Thoracic aortic aneurysm, without rupture; M54.30 Sciatica, unspecified side; Z88.5 Allergy status to narcotic agent; L03.116 Cellulitis of left lower limb; I34.0 Nonrheumatic mitral (valve) insufficiency
CPT/HCPCS: 36600; 71010; 71275; 76937; 80048; 80053; 80162; 81270; 82607; 82785; 82805; 83520; 83735; 83880; 84443; 84484; 85007; 85025; 85027; 85060; 85610; 85730; 86021; 88184; 88185; 88377; 93005; 93306; 94060; 97163; 99285; G0378; G8987; G8988; Q9967